=== PATIENT | female | born 1980 | race African-American/Black ===

== ENCOUNTER 2017-04-22 22:32 | Emergency (ER) | payer SELFPAY ==
[~2017-04-22] VITALS: Ht 160 cm; Wt 83.5 kg
[~2017-04-22 22:32] MED LIST: DIFLUCAN100 MG ORAL; METRONIDAZOLE500 MG ORAL; NITROFURANTOIN100 M2 ORAL
[2017-04-22 22:50] VITALS: BP 122/78
[2017-04-22] MEDS ORDERED: Tetanus/Diptheria/Pertussis Vaccine 0.5ml Syr IM ONE (23:30)
--- NOTE | 2017-04-22 23:38 | Emergency Room Report ---
History of Present Illness General Chief Complaint: Laceration Source: Patient Present Illness HPI 36-year-old female p/w laceration/abrasion to right thigh. sustained when he was walking in a store, and it hit the corner of a furniture.. no other complaints. Tdap is not up-to-date Allergies: Coded Allergies: No Known Allergies (Unverified , 09/12/14) Patient History Past Medical History: see triage record Past Surgical History: none Pertinent Family History: none Last Menstrual Period: JAN 2017 Reviewed Nursing Documentation: PMH: Agreed, PSxH: Agreed Nursing Documentation-PMH Past Medical History: No Stated History Hx Cardiac Problems: No Hx Hypertension: No Hx Pacemaker: No Hx Asthma: No Hx COPD: No Hx Diabetes: No Hx Cancer: No Hx Gastrointestinal Problems: No Hx Dialysis: No Hx Neurological Problems: No Hx Cerebrovascular Accident: No Hx Seizures: No Review of Systems All Other Systems: negative except mentioned in HPI Physical Exam Vital Signs Date Time Temp Pulse Resp B/P (MAP) Pulse Ox O2 Delivery O2 Flow Rate FiO2 04/22/17 22:44 97.2 88 16 120/74 97 Room Air Sp02 EP Interpretation: reviewed, normal General Appearance: normal inspection, well appearing, no apparent distress, alert, GCS 15, non-toxic Head: normocephalic, atraumatic Eyes: bilateral eye normal inspection, bilateral eye PERRL, bilateral eye EOMI ENT: normal ENT inspection, normal pharynx, normal voice, moist mucus membranes Neck: normal inspection, full range of motion, supple Respiratory: normal inspection, lungs clear, normal breath sounds, no respiratory distress, no retraction, no wheezing, speaking full sentences, chest symmetrical Cardiovascular #1: normal inspection, regular rate, rhythm, no edema, normal capillary refill Cardiovascular #2: 2+ radial (R), 2+ radial (L) Gastrointestinal: normal inspection, non tender, soft, non-distended, no guarding Musculoskeletal: normal inspection, back normal, normal range of motion, non- tender Neurologic: normal inspection, alert, oriented x3, responsive, motor strength/ tone normal, sensory intact, normal gait, speech normal Psychiatric: normal inspection, judgement/insight normal, memory normal Skin: normal color, no rash, warm/dry, well hydrated, normal turgor, other - Right thigh with very small less than 1 cm abrasion, no gaping laceration, no active bleeding Medical Decision Making Diagnostic Impression: Primary Impression: Abrasion ER Course 36-year-old female with abrasion to right thigh Abrasion, there is no indication for sutures at this time, there is no gaping wound No signs of infection Plan Irrigate and clean wound, tetanus, Motrin ER course: Irrigated, bacitracin with sterile dressing applied. Motrin given Tdap given. Disposition: Patient will be discharged home. Strict return precautions discussed with patient such as fever, chills, increasing bleeding to site, purulent drainage, rapid swelling or redness to area. Patient verbalizes understanding. Patient sis informed of inevitable scar that will result from abrasion. Pt instructed to avoid sun exposure to decrease the appearance of scar. Please note that this Emergency Department Report was dictated using [email or web address] manager technology software, occasionally this can lead to erroneous entry secondary to interpretation by the dictation equipment Last Vital Signs Date Time Temp Pulse Resp B/P (MAP) Pulse Ox O2 Delivery O2 Flow Rate FiO2 04/22/17 22:44 97.2 88 16 120/74 97 Room Air Disposition: HOME, SELF-CARE Condition: Improved Patient Instructions: Laceration Care, Adult Max Peter M.D. Apr 22, 2017 23:38
[2017-04-22] MEDS ORDERED: IBUPROFEN600 MG ORAL (23:50)
[2017-04-22 23:55] VITALS: BP 125/74
[2017-04-23] MEDS ORDERED: Bacitracin Oint UD TOPIC ONE
[2017-04-23] MEDS ORDERED: KEFLEX500 MG ORAL (21:30)
== END 2017-04-22 23:55 | disposition home or self-care (01) ==
LOC: EMR 23:05
DX: S70.311A Abrasion, right thigh, initial encounter (principal); Z23 Encounter for immunization; W22.03XA Walked into furniture, initial encounter; Y92.512 Supermarket, store or market as the place of occurrence of the external cause
CPT/HCPCS: 90471; 90715; 99283

== ENCOUNTER 2017-04-23 20:58 | Emergency (ER) | payer SELFPAY ==
[~2017-04-23] VITALS: Ht 160 cm; Wt 83.5 kg
[~2017-04-23 20:58] MED LIST changes: +IBUPROFEN600 MG ORAL
[2017-04-23 21:30] VITALS: BP 116/79
[2017-04-23] MEDS ORDERED: KEFLEX500 MG ORAL (21:30)
--- NOTE | 2017-04-23 21:40 | Emergency Room Report ---
History of Present Illness General Chief Complaint: Wound Recheck/Suture Removal Source: Patient Present Illness HPI 36-year-old female, in no significant past medical history, presenting with wound recheck. Patient has scratch/abrasion yesterday, was given Motrin in the ER, came back states it is still hurting. No fever no chills. No increase of swelling. No purulent drainage. He states it hurts more than yesterday. Able to ambulate Allergies: Coded Allergies: No Known Allergies (Unverified , 09/12/14) Patient History Past Medical History: see triage record Past Surgical History: none Pertinent Family History: none Last Menstrual Period: 2016 Now: No Reviewed Nursing Documentation: PMH: Agreed, PSxH: Agreed Nursing Documentation-PMH Hx Cardiac Problems: No Hx Hypertension: No Hx Pacemaker: No Hx Asthma: No Hx COPD: No Hx Diabetes: No Hx Cancer: No Hx Gastrointestinal Problems: No Hx Dialysis: No Hx Neurological Problems: No Hx Cerebrovascular Accident: No Hx Seizures: No Review of Systems All Other Systems: negative except mentioned in HPI Physical Exam Vital Signs Date Time Temp Pulse Resp B/P (MAP) Pulse Ox O2 Delivery O2 Flow Rate FiO2 04/23/17 21:26 97.5 84 18 116/79 98 Sp02 EP Interpretation: reviewed, normal General Appearance: normal inspection, well appearing, no apparent distress, alert, GCS 15, non-toxic Head: normocephalic, atraumatic Eyes: right eye lid inflammation, bilateral eye normal inspection, bilateral eye PERRL, bilateral eye EOMI ENT: normal ENT inspection, normal pharynx, normal voice, moist mucus membranes Neck: normal inspection, full range of motion, supple Respiratory: normal inspection, lungs clear, normal breath sounds, no respiratory distress, no retraction, no wheezing, speaking full sentences, chest symmetrical Cardiovascular #1: normal inspection, regular rate, rhythm, normal capillary refill Cardiovascular #2: 2+ radial (R), 2+ radial (L) Gastrointestinal: normal inspection, non tender, soft, non-distended, no guarding Musculoskeletal: normal inspection, back normal, normal range of motion, non- tender Neurologic: normal inspection, alert, oriented x3, responsive, motor strength/ tone normal, sensory intact, normal gait, speech normal Psychiatric: normal inspection, judgement/insight normal, memory normal Skin: other - Right upper thigh, healing abrasion noted, mild erythema, no purulent drainage, no tenderness beyond wound, no crepitus Medical Decision Making Diagnostic Impression: Primary Impression: Encounter for wound re-check ER Course 36-year-old female with wound recheck DDX: Abrasion from yesterday, does not appear to be obviously infected, however there is some mild erythema, possibly early infection Plan: None in the emergency room ER course: Patient has remained stable during ED stay. Disposition: Patient is to be discharged to home. Prescriptions given are Keflex Patient is instructed to follow up with their primary care doctor in 3-4 days for wound recheck Strict return precautions discussed with patient such as fever, chills, worsening/severe pain, rapid spread of rash, which may indicate severe illness. Patient verbalizes understanding and agrees with plan. Please note that this Emergency Department Report was dictated using [employer]cartoon artist technology software, occasionally this can lead to erroneous entry secondary to interpretation by the dictation equipment Last Vital Signs Date Time Temp Pulse Resp B/P (MAP) Pulse Ox O2 Delivery O2 Flow Rate FiO2 04/23/17 21:26 97.5 84 18 116/79 98 Disposition: HOME, SELF-CARE Condition: Stable Scripts Cephalexin* (KEFLEX*) 500 Mg Capsule 500 MG ORAL Q6H, #28 CAP 0 Refills Prov: Max Peter M.D. 04/23/17 Patient Instructions: Wound Care Additional Instructions: PLEASE FOLLOW UP WITH YOUR DOCTOR IN 3-4 DAYS FOR WOUND RECHECK. Max Peter M.D. Apr 23, 2017 21:40
[2017-04-23] MEDS ORDERED: Bacitracin Oint UD TOPIC ONE (21:45)
[2017-04-23 22:18] VITALS: BP 121/74
[2017-04-24] MEDS ORDERED: NKM (22:58)
== END 2017-04-23 22:18 | disposition home or self-care (01) ==
LOC: EMR 21:14
DX: S70.311D Abrasion, right thigh, subsequent encounter (principal); X58.XXXD Exposure to other specified factors, subsequent encounter; Z48.00 Encounter for change or removal of nonsurgical wound dressing
CPT/HCPCS: 99283

== ENCOUNTER 2017-04-24 22:46 | Emergency (ER) | payer SELFPAY ==
[~2017-04-24] VITALS: Ht 160 cm; Wt 83.5 kg
[~2017-04-24 22:46] MED LIST changes: +KEFLEX500 MG ORAL
[2017-04-24] MEDS ORDERED: NKM (22:58)
[2017-04-24 23:00] VITALS: BP 123/81
--- NOTE | 2017-04-24 23:38 | Emergency Room Report ---
History of Present Illness General Chief Complaint: Pain Source: Patient Present Illness HPI Patient is a 36 year old female who presented for recheck of thigh injury. This had occurred several days ago. Patient reported worsen pain. She denied any fever or discharge. Allergies: Coded Allergies: No Known Allergies (Unverified , 09/12/14) Patient History Past Medical History: see triage record Last Menstrual Period: 02/05/17 Now: No : 1 Para: 1 Reviewed Nursing Documentation: PMH: Agreed, PSxH: Agreed Nursing Documentation-PMH Past Medical History: No Stated History Hx Cardiac Problems: No Hx Hypertension: No Hx Pacemaker: No Hx Asthma: No Hx COPD: No Hx Diabetes: No Hx Cancer: No Hx Gastrointestinal Problems: No Hx Dialysis: No Hx Neurological Problems: No Hx Cerebrovascular Accident: No Hx Seizures: No Review of Systems All Other Systems: negative except mentioned in HPI Physical Exam Vital Signs Date Time Temp Pulse Resp B/P (MAP) Pulse Ox O2 Delivery O2 Flow Rate FiO2 04/24/17 22:56 97.9 95 14 123/81 97 Room Air General Appearance: well appearing, no apparent distress, alert, GCS 15 Head: normocephalic, atraumatic ENT: hearing grossly normal, normal voice Neck: full range of motion, supple Respiratory: no respiratory distress, speaking full sentences Gastrointestinal: normal inspection, soft Musculoskeletal: normal inspection, back normal, other - slight tenderness to area near injury site Neurologic: alert, oriented x3, normal gait Psychiatric: mood/affect normal Skin: no rash, other - superficial abrasion without erythema, linear, minimal bruising Medical Decision Making Diagnostic Impression: Primary Impression: Muscle contusion Additional Impression: Abrasion ER Course Patient is a 36-year-old female presented after increased right thigh pain. Differential diagnoses included was not limited to cellulitis, abscess, muscle injury among others. Patient has a benign exam and does not appear to require any further imaging or laboratory testing at this time. The patient has very minimal skin changes. There is no appreciable soft tissue swelling. The patient was noted to have minimal tenderness over her quadricep muscle on the right thigh. Patient is advised to ice and continue ibuprofen. The patient is advised to follow up with primary care doctor in 1-2 days. Patient is advised to return if any worsening condition or if any changes in status that are concerning. This report is dictated with [employer] operator software which may occasionally lead to discrepancies related to use of this software. Last Vital Signs Date Time Temp Pulse Resp B/P (MAP) Pulse Ox O2 Delivery O2 Flow Rate FiO2 04/24/17 22:56 97.9 95 14 123/81 97 Room Air Status: improved Disposition: HOME, SELF-CARE Condition: Stable Patient Instructions: Contusion Thanh Walton Apr 24, 2017 23:38
[2017-04-24] MEDS ORDERED: Bacitracin Oint UD TOPIC ONE ×2 (23:43→23:45)
[2017-04-24 23:45] VITALS: BP 123/81
== END 2017-04-24 23:45 | disposition home or self-care (01) ==
LOC: EMR 23:19
DX: S70.11XA Contusion of right thigh, initial encounter (principal); S70.311A Abrasion, right thigh, initial encounter; X58.XXXA Exposure to other specified factors, initial encounter; Y92.9 Unspecified place or not applicable
CPT/HCPCS: 99283